=== PATIENT | female | born 2000 | race Caucasian/White ===

== ENCOUNTER 2022-12-24 17:52 | Inpatient (IN) | payer MEDICAID ==
[~2022-12-24] VITALS: Ht 167.6 cm; Wt 64.4 kg
[2022-12-24] MEDS ORDERED: PREN-543 PO (18:29)
[2022-12-24] MEDS ORDERED: FERR325E14 PO (18:29)
[2022-12-24] MEDS ORDERED: METHYLERGONOVINE 0.2 MG/ML AMP IM PRN (18:50)
[2022-12-24] MEDS ORDERED: OXYTOCIN 10 UNITS/ML VIAL IM SCH (18:50)
[2022-12-24] MEDS ORDERED: CARBOPROST 250 MCG/ML AMP IM PRN (18:50)
[2022-12-24] MEDS ORDERED: LACTATED RINGERS 1,000 ML IV SCH (18:50)
[2022-12-24 18:59] VITALS: BP 115/68
[2022-12-24 19:25] LABS: BASOPHILS % (AUTO) 0.3 % (0.0-2.0); EOSINOPHILS % (AUTO) 0.1 % (0.0-4.0); HEMATOCRIT 36.1 % (36-48); HEMOGLOBIN 12.8 g/dL (12.0-16.0); LYMPHOCYTES # (AUTO) 1.4 K/uL (2.5-16.5); MEAN CORPUSCULAR HEMOGLOBIN 33 pg (27-31); MEAN CORPUSCULAR HGB CONC 35 g/dL (33-37); MEAN CORPUSCULAR VOLUME 93.9 fL (80-94); MONOCYTES # (AUTO) 0.7 K/uL (0.8-1.0); MONOCYTES % (AUTO) 7.9 % (1.7-9.3); NEUTROPHILS % (AUTO) 76.7 % (42.2-75.2); PLATELET COUNT (AUTO) 156 K/uL (140-450); RED BLOOD CELL COUNT(AUTO) 3.84 MIL/uL (4.20-5.40); RED CELL DISTRIBUTION WIDTH 12.8 % (11.6-13.7); WHITE BLOOD COUNT (AUTO) 9.1 K/uL (4.8-10.8)
[2022-12-24 19:44] LABS: PROTHROMBIN TIME 9.4 secs (10.8-13.4)
[2022-12-24 19:48] LABS: ALBUMIN 3.4 g/dL (3.4-5.0); ANION GAP 13.3 (8-16); CARBON DIOXIDE 25.3 mmol/L (21-32); CREATININE 0.7 mg/dL (0.6-1.3); POTASSIUM 4.6 mmol/L (3.5-5.1); TOTAL BILIRUBIN 0.6 mg/dL (0.0-1.0)
[2022-12-24 20:18] LABS: APPEARANCE,URINE CLEAR (CLEAR); BILIRUBIN,URINE NEGATIVE (NEGATIVE); BLOOD, URINE NEGATIVE (NEGATIVE); COLOR,URINE YELLOW (YELLOW); LEUKOCYTE ESTERASE ,URINE NEGATIVE (NEGATIVE); NITRITE, URINE NEGATIVE (NEGATIVE); UGLUCOSE NEGATIVE (NEGATIVE)
[2022-12-24] MEDS ORDERED: MORPHINE SULFATE 5 MG/ML VIAL IVP PRN (21:00)
[2022-12-24] MEDS ORDERED: OXYTOCIN 20 UNITS in LACTATED RINGERS 1,000 ML IV SCH (21:00)
[2022-12-24] MEDS ORDERED: ONDANSETRON 4 MG/2 ML VIAL IVP PRN (21:00)
[2022-12-24] MEDS ORDERED: OXYTOCIN 20 UNITS/LR PREMIX 1,000 ML IV ONE (22:01)
[2022-12-24] MEDS ORDERED: MORPHINE SULFATE 10 MG/ML VIAL ONE (23:45)
[2022-12-24 23:51] VITALS: BP 111/60
[2022-12-25] MEDS ORDERED: MORPHINE SULFATE 10 MG/ML VIAL ONE (02:40)
[2022-12-25] MEDS ORDERED: AMPICILLIN 2,000 MG in NACL 0.9% 100 ML IV SCH (03:15)
[2022-12-25] MEDS ORDERED: AMPICILLIN 2,000 MG VIAL ONE (03:15)
[2022-12-25] MEDS ORDERED: AMPICILLIN 1,000 MG in NACL 0.9% 50 ML IV SCH (07:00)
[2022-12-25] MEDS ORDERED: TEMAZEPAM 15 MG CAP PO PRN (08:45)
[2022-12-25] MEDS ORDERED: oxyCODONE/APAP 5/325 MG 1 TAB TAB PO PRN (08:45)
[2022-12-25] MEDS ORDERED: METHYLERGONOVINE 0.2 MG/ML AMP IM PRN (08:45)
[2022-12-25] MEDS ORDERED: IBUPROFEN 800 MG TAB PO PRN (08:45)
[2022-12-25] MEDS ORDERED: BENZOCAINE/MENTHOL 20%-0.5% 60 GM CAN TP PRN (08:45)
[2022-12-25] MEDS ORDERED: SODIUM PHOSPHATE 118 ML ENEM RC PRN (08:45)
[2022-12-25] MEDS ORDERED: MEASLES, MUMPS, AND RUBELLA 1 VIAL SQVAC ONE (08:45)
[2022-12-25] MEDS ORDERED: FERROUS SULFATE 325 MG TABEC PO SCH (09:00)
--- NOTE | 2022-12-25 10:38 | NUR ---
PATIENT HAS BEEN SCREENED AND CATEGORIZED LOW NUTRITION RISK. PATIENT WILL BE SEEN WITHIN 7 DAYS OF ADMISSION. 12/31/[address]
[2022-12-25] MEDS ORDERED: DOCUSATE SOD/SENNA 50/8.6 MG 1 TAB PO SCH (21:00)
[2022-12-26 06:59] LABS: HEMATOCRIT 32.1 % (36-48); HEMOGLOBIN 11.3 g/dL (12.0-16.0)
[2022-12-26 15:33] LABS: BARBITURATE, URINE NEGATIVE ng/ml (NEG <=200); BENZODIAZEPINE, URINE NEGATIVE ng/mL (NEG <=200); CANNABINOID, URINE NEGATIVE ng/mL (NEG <=50); COCAINE, URINE NEGATIVE ng/mL (NEG <=300); OPIATE, URINE NEGATIVE ng/mL (NEG <=2000); PHENCYCLIDINE SCREEN,URINE NEGATIVE ng/mL (NEG <=25)
== END 2022-12-27 11:52 | disposition home or self-care (01) | DRG 560 ==
LOC: MLD 17:52 → OBSVTOIN 20:45 → MFCC 12-25 08:50
PROVIDERS: ADMIT Obstetrics & Gynecology; ATTEND Obstetrics & Gynecology
PROC: 10E0XZZ Delivery of Products of Conception, External Approach (ICD-10-PCS; principal; 2022-12-24)
PROC: 3E033VJ Introduction of Other Hormone into Peripheral Vein, Percutaneous Approach (ICD-10-PCS; 2022-12-24)
PROC: 3E0R3BZ Introduction of Anesthetic Agent into Spinal Canal, Percutaneous Approach (ICD-10-PCS; 2022-12-24)
PROC: 00HU33Z Insertion of Infusion Device into Spinal Canal, Percutaneous Approach (ICD-10-PCS; 2022-12-24)
DX: O41.03X0 Oligohydramnios, third trimester, not applicable or unspecified (principal); Z37.0 Single live birth; O24.420 Gestational diabetes mellitus in childbirth, diet controlled; O36.8130 Decreased fetal movements, third trimester, not applicable or unspecified; Z20.822 Contact with and (suspected) exposure to COVID-19; O90.81 Anemia of the puerperium; Z3A.39 39 weeks gestation of pregnancy
CPT/HCPCS: 36415; 59409; 76805; 80053; 80305; 81003; 85018; 85025; 85610; 85730; 86592; 86762; 86870; 86886; 86900; 86901; 87340; 87653-90; J0290; J2270; J2405; J2590; J7120; Q0092